=== PATIENT | male | born 1935 | race Caucasian/White ===

== ENCOUNTER 2017-06-04 16:09 | Observation (INO) | payer OTHER ==
[2017-06-04] MEDS ORDERED: HYDROCODONE/APAP 5/325 TAB PO ONE (16:48)
--- NOTE | 2017-06-04 16:56 | EDPHY ---
H & P Time Seen by Provider: 06/04/17 16:26 HPI/ROS: CHIEF COMPLAINT: "Put out my left leg" HISTORY OF PRESENT ILLNESS: This 81-year-old man has had intermittent sciatica in his left leg. He presents today with severe left hip and leg pain which started when he stood up on a big step today at 10:00 a.m.. He said this is just like his previous sciatica of left hip pain radiating to the lateral left leg to his knee which is severe with movement or weight-bearing. He can barely walk. Radiates down his leg. Mild at rest moderate to severe with standing. No fall or other direct trauma. No weakness or numbness in his foot no incontinence. REVIEW OF SYSTEMS: Eye: no change in vision ENT: no sore throat Cardiac: no chest pain or syncope Pulmonary: no cough or SOB Abdomen: no vomiting, diarrhea, abdominal pain Musculoskeletal: HPI Skin: no rash Neuro: no headache. The patient describes for the last couple of weeks intermittent tingling on the left side of his neck which wraps around to his right ear which he is concerned might be a stroke Constitutional: no fever : no urinary symptoms A comprehensive 10 point review of systems is otherwise negative aside from elements mentioned in the history of present illness. PAST MEDICAL HISTORY: Pacemaker and sciatica Social history: Lives at [facility] here with a friend and his son General Appearance: Alert and conversant, cooperative. Eyes: No scleral icterus. Extraocular motion intact. ENT, Mouth: Normal mucous membranes. Normal ears bilaterally without any vesicles or rash. Respiratory: Normal respiratory effort, breath sounds equal, lungs are clear to auscultation. Cardiovascular: Regular rate and rhythm. Gastrointestinal: Abdomen is soft and non tender. Neurological: Alert and oriented x3. Normally conversant. Face symmetric, normal movement and sensation in all extremities. DTRs 1+ left patella 2+ right patella and 1+ bilateral ankles. Toes downgoing and no clonus. The the patient can stand but needs to hold on me because of pain in his left hip and leg Skin: Warm and dry, no rashes. Musculoskeletal: Normal range of motion of the neck. Psychiatric: Not agitated. Emergency Department course/MDM: Patient is clearly not able to ambulate independently right now. I do not think the tingling in his neck or his ear represents an acute medical or surgical emergency. He took 2 Aleve at 11:00 a.m.. Plan for 1 [place], x-ray of the left hip, labs and probable admission for further evaluation and treatment. MRI not possible because of pacemaker. Admission because he can't walk. Hip Xray negative for fracture per Dr. Babin at 9:20 p.m., possible trochanteric bursitis. Smoking Status: Never smoked Constitutional: Initial Vital Signs Temperature (C) 36.9 C 06/04/17 16:11 Heart Rate 75 06/04/17 16:11 Respiratory Rate 18 06/04/17 16:11 Blood Pressure 168/87 H 06/04/17 16:11 O2 Sat (%) 94 06/04/17 16:11 O2 Delivery Mode Room Air Allergies/Adverse Reactions: Penicillins Allergy (Mild, Verified 06/04/17 16:10) NAUSEA POLLENS Allergy (Mild, Uncoded 05/25/13 14:30) STUFFY NOSE Home Medications: Medication Instructions Recorded Aspirin [Aspirin 325 mg] 0.5 tab PO DAILY 05/08/11 Bimatoprost 0.03% [Lumigan 0.03%] 1 drops EACHEYE HS 05/08/11 Levothyroxine [Synthroid 150 mcg 150 mcg PO DAILY@05/08/11 (*)] Rosuvastatin Calcium [Crestor] 5 mg PO HS 05/08/11 Testosterone [Androgel 1%] 5 gm TD DAILY 05/08/11 Brinzolamide/Brimonidine Tart 1 drop EACHEYE TID 06/30/13 [Simbrinza 1%-0.2% Eye Drops] Furosemide [Lasix 20 MG (RX)] 20 mg PO DAILY 06/30/13 Glimepiride [Amaryl] 4 mg PO BID@,18 06/30/13 Insulin Aspart [Novolog] 1 - 3 unit SQ DAILY@06/30/13 Insulin Glargine [Lantus 100 13 units SC DAILY 06/30/13 UNITS/ML (RX)] Pioglitazone HCl [Actos] 45 mg PO DAILY 06/30/13 Quinapril HCl [Accupril 40 MG] 40 mg PO DAILY 06/30/13 Medical Decision Making - Diagnostics Imaging Results: Imaging Impressions Hip X-Ray 06/04/17 16:48 Impression: No evidence for acute osseous abnormality left hip. Differential Diagnosis: Differential considered including but not limited to hip fracture, sciatica, bursitis, compartment syndrome, spinal stenosis. Consult/Admit Bed Type: [facility] - Data Points Laboratory Results: Laboratory Results 06/04/17 18:22 06/04/17 18:22 06/04/17 06/04/17 18:22 18:22 WBC 9.25 10^3/uL 10^3/uL (3.80-9.50) RBC 4.54 10^6/uL 10^6/uL (4.40-6.38) Hgb 15.0 g/dL g/dL (13.7-17.5) Hct 41.9 % % (40.0-51.0) MCV 92.3 fL fL (81.5-99.8) MCH 33.0 pg pg (27.9-34.1) MCHC 35.8 g/dL g/dL (32.4-36.7) RDW 14.6 % % (11.5-15.2) Plt Count 151 10^3/uL 10^3/uL (150-400) MPV 9.4 fL fL (8.7-11.7) Neut % (Auto) 58.3 % % (39.3-74.2) Lymph % (Auto) 27.5 % % (15.0-45.0) Caroline % (Auto) 9.3 % % (4.5-13.0) Eos % (Auto) 3.9 % % (0.6-7.6) Baso % (Auto) 0.8 % % (0.3-1.7) Nucleat RBC Rel Count 0.0 % % (0.0-0.2) Absolute Neuts (auto) 5.40 10^3/uL 10^3/uL (1.70-6.50) Absolute Lymphs (auto) 2.54 10^3/uL 10^3/uL (1.00-3.00) Absolute Monos (auto) 0.86 10^3/uL H 10^3/uL (0.30-0.80) Absolute Eos (auto) 0.36 10^3/uL 10^3/uL (0.03-0.40) Absolute Basos (auto) 0.07 10^3/uL 10^3/uL (0.02-0.10) Absolute Nucleated RBC 0.00 10^3/uL 10^3/uL (0-0.01) Immature Gran % 0.2 % % (0.0-1.1) Immature Gran # 0.02 10^3/uL 10^3/uL (0.00-0.10) Sodium 137 mEq/L mEq/L (134-144) Potassium 4.4 mEq/L mEq/L (3.5-5.2) Chloride 107 mEq/L mEq/L (97-110) Carbon Dioxide 21 mEq/l L mEq/l (22-31) Anion Gap 9 mEq/L mEq/L (8-16) BUN 51 mg/dL H mg/dL (7-23) Creatinine 2.1 mg/dL H mg/dL (0.7-1.3) Estimated GFR 31 Glucose 197 mg/dL H mg/dL (70-100) Calcium 10.0 mg/dL mg/dL (8.5-10.4) Medications Given: Acetaminophen (Tylenol) 650 mg PO Q4HRS PRN PRN Reason: Pain, Mild/Fever, Can Take PO Stop: 12/01/17 19:06 Last Admin: 06/04/17 22:06 Dose: 650 mg Discontinued Medications Hydrocodone Bitart/Acetaminophen ([place] 5/325) 1 tab PO EDNOW ONE Stop: 06/04/17 16:49 Last Admin: 06/04/17 17:04 Dose: 1 tab Departure - Departure Disposition: [facility] Inpatient Acute Clinical Impression: Left hip pain Condition: Good
[2017-06-04 18:38] LABS: % IMMATURE GRANULYOCYTES 0.2 % (0.0-1.1); ABSOLUTE IMMATURE GRANULOCYTES 0.02 10^3/uL (0.00-0.10); ADD DIFF? NO; ADD MORPH? NO; ADD SCAN? NO; ATYPICAL LYMPHOCYTE FLAG 10 (0-99); FRAGMENT RBC FLAG 40 (0-99); HEMATOCRIT 41.9 % (40.0-51.0); LEFT SHIFT FLG 0 (0-99); LIPEMIA HEMOLYSIS FLAG 90 (0-99); MEAN CELL HEMOGLOBIN CONCENTR. 35.8 g/dL (32.4-36.7); MEAN CELL VOLUME 92.3 fL (81.5-99.8); MEAN PLATELET VOLUME 9.4 fL (8.7-11.7); PLATELET CLUMPS FLAG 0 (0-99); PLATELET COUNT 151 10^3/uL (150-400); RED BLOOD CELL COUNT 4.54 10^6/uL (4.40-6.38); RED CELL DISTRIBUTION WIDTH 14.6 % (11.5-15.2)
[2017-06-04 19:00] LABS: ANION GAP 9 mEq/L (8-16); CARBON DIOXIDE 21 mEq/l (22-31); CHLORIDE 107 mEq/L (97-110); CREATININE 2.1 mg/dL (0.7-1.3); GLOMERULAR FILTRATION RATE 31; GLUCOSE 197 mg/dL (70-100); POTASSIUM 4.4 mEq/L (3.5-5.2); SODIUM 137 mEq/L (134-144)
[2017-06-04] MEDS ORDERED: ONDANSETRON 4 MG/2 ML VIAL IVP PRN (19:07)
[2017-06-04] MEDS ORDERED: ACETAMINOPHEN 325 MG TAB PO PRN (19:07)
[2017-06-04] MEDS ORDERED: ONDANSETRON DISINTEGRATING 4 MG TAB PO PRN (19:07)
[2017-06-04] MEDS ORDERED: oxyCODONE IR 5 MG TAB PO PRN (19:07)
[2017-06-04] MEDS ORDERED: TEMAZEPAM 15 MG CAP PO PRN (19:07)
[2017-06-04] MEDS ORDERED: D50W 25 GM/50 ML SYR IVP PRN (19:15)
--- NOTE | 2017-06-04 20:08 | GHP ---
[f rep st] HISTORY AND PHYSICAL DATE OF ADMISSION: 06/04/2017 CHIEF COMPLAINT: Sciatica pain. HISTORY OF PRESENT ILLNESS: This is a 81-year-old man who presents with an acute episode of sciatica pain. He was taking a large step up onto a bus with his left leg and had immediate severe pain down his left SI joint, down his left buttock, radiated to the front of his leg but did not pass his knee . He had no weakness. He was thus brought to the emergency department for further evaluation. He h as no loss of bowel or bladder. He is able to urinate. He has no new numbness down the leg, though he does have chronic diabetic neuropathy. He notes that his pain is a little bit better with Vicodin . He has not had any fevers recently. He had an episode like this about 2-1/2 weeks ago while he wa s working with PT. He was able to work out the pain with some manual adjustments during that session . It took about 45 minutes. He had seen Dr. Schmidt before and has had an injection. PAST MEDICAL/SURGICAL HISTORY: 1. Pacemaker. 2. Sciatica. 3. BPH. 4. Chronic kidney disease. 5. 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 6. Hypertension. 7. Hyperlipidemia. 8. Hypothyroid. 9. Anemia. 10. GUILLERMO. 11. Glaucoma. MEDICATIONS: Please see medication reconciliation. ALLERGIES: Penicillin and pollens. SOCIAL HISTORY: He lives at the [facility]. FAMILY HISTORY: Reviewed and noncontributory. REVIEW OF SYSTEMS: A 10-point review of systems was conducted and is negative except per history of present illness. PHYSICAL EXAMINATION: VITAL SIGNS: Blood pressure 178/87, heart rate 75, respiration rate 18, satur ating 94% on room air, temperature 36.9. GENERAL: The patient is a pleasant man who appears uncomfo rtable lying in bed. HEENT: Shows him to be normocephalic, atraumatic. CARDIOVASCULAR: Regular ra te and rhythm. No murmurs, rubs, or gallops. PULMONARY: Lungs clear to auscultation bilaterally. ABDOMEN: Soft, nontender, nondistended. SKIN: Shows no rash : Exam shows no Heaton. NEUROLOGIC: Exam shows him to be alert and oriented x3. He is tender to palpation over the left SI joint and l eft buttock. His sensation is unchanged in his left leg though he does have diminished sensation to light touch in his distal leg. Motor is intact. Reflexes are diminished, but symmetric bilaterally. PSYCHIATRIC: Exam shows normal mood and affect. LABORATORY: CBC is normal. Creatinine is 2.1, bicarb is 21, glucose 179. DATA: 1. I discussed Dr. Sams. Will admit to med surg for pain control. 2. Hip x-ray shows no acute fracture. IMPRESSION AND PLAN: A 81-year-old man with acute episode of sciatic pain. 1. Sciatica: He is unable to get an MRI due to his pacemaker. CT scan has been ordered by Dr. Sams , will follow up on that. We will provide him pain medications overnight. I discussed treating this with steroids and he is a little bit hesitant. Could consider SI joint injection or other injection tomorrow based on his CAT scan. He would be amenable to this. We will go ahead and make him n.p.o. after midnight pending that. 2. Chronic kidney disease: He is at his baseline. Avoid nephrotoxins. 3. Diabetes mellitus type 2: We will continue his home insulins. We will do glucose checks and giv e him sliding scale insulin. 4. Hypertension: Will continue his antihypertensives. /[id number]/MODL
[2017-06-04] MEDS ORDERED: INSULIN GLARGINE 100 UNITS/ML SYRINGE SC SCH (22:45)
[2017-06-05 04:45] LABS: % IMMATURE GRANULYOCYTES 0.3 % (0.0-1.1); ABSOLUTE IMMATURE GRANULOCYTES 0.04 10^3/uL (0.00-0.10); ADD DIFF? NO; ADD MORPH? NO; ADD SCAN? NO; ATYPICAL LYMPHOCYTE FLAG 0 (0-99); FRAGMENT RBC FLAG 0 (0-99); HEMATOCRIT 39.1 % (40.0-51.0); HEMOGLOBIN 14.1 g/dL (13.7-17.5); LEFT SHIFT FLG 0 (0-99); LIPEMIA HEMOLYSIS FLAG 90 (0-99); MEAN CELL HEMOGLOBIN 33.1 pg (27.9-34.1); MEAN CELL HEMOGLOBIN CONCENTR. 36.1 g/dL (32.4-36.7); MEAN CELL VOLUME 91.8 fL (81.5-99.8); MEAN PLATELET VOLUME 8.9 fL (8.7-11.7); PLATELET CLUMPS FLAG 10 (0-99); PLATELET COUNT 129 10^3/uL (150-400); RED BLOOD CELL COUNT 4.26 10^6/uL (4.40-6.38); RED CELL DISTRIBUTION WIDTH 14.4 % (11.5-15.2)
[2017-06-05 05:07] LABS: ANION GAP 9 mEq/L (8-16); CARBON DIOXIDE 20 mEq/l (22-31); CHLORIDE 110 mEq/L (97-110); CREATININE 2.1 mg/dL (0.7-1.3); GLOMERULAR FILTRATION RATE 31; GLUCOSE 110 mg/dL (70-100); POTASSIUM 4.6 mEq/L (3.5-5.2); SODIUM 139 mEq/L (134-144)
[2017-06-05 08:27] VITALS: RESP 18; TEMP 98.4
[2017-06-05] MEDS: INSULIN LISPRO 100 UNIT/ML SC SCH ×2 (11:08→12:10)
--- NOTE | 2017-06-05 11:10 | HOSPPROG ---
Hospitalist Progress Note Assessment/Plan: Patient is a 81-year-old male who presented with an acute episode of sciatica pain. He was taken a large step onto the bus and with his left leg and had severe pain down his left buttock which radiated to the front of the leg but did not past his knee. He has an ambulance unable to get an MRI because he has a pacemaker in place. Today is my 1st encounter with the patient. Chart reviewed. * sciatica CT scan shows nothing acute Working with physical therapy and occupational therapy pain is in the hip area as well/ has some bursitis in left trochanter * chronic kidney disease At his baseline * diabetes type 2 Will resume his home meds *HTN bp elevated/likely due to pain *Plan; spoke with IR and they can do injection tomorrow/ patient feels overall better and was able to ambulate/ spoke with Dr Hurt and she will f/u with him. Subjective: Don said his pain is ongoing but better. Objective: Vital Signs Temp Pulse Resp BP Pulse Ox 36.9 C 64 18 169/76 H 93 06/05/17 08:26 06/05/17 08:26 06/05/17 08:26 06/05/17 08:26 06/05/17 08:26 Laboratory Results 06/05/17 04:34 06/05/17 04:34 06/04/17 06/05/17 06/06/17 05:59 05:59 05:59 Output Total 75 Balance -75 - Physical Exam Constitutional: no apparent distress, appears nourished, No not in pain Eyes: PERRL Ears, Nose, Mouth, Throat: hearing normal Respiratory: no respiratory distress Skin: warm Musculoskeletal: muscular tenderness (at left hip area/ around the trochanter and into the left gluteus area) Neurologic: AAOx3 Psychiatric: interacting appropriately ICD10 Worksheet Patient Problems: Problems Problem Status Onset Left hip pain Acute Acute lower urinary tract infection Active Ronal hematuria Active Retention of urine Active Urinary tract obstruction Active
[2017-06-05 11:11] VITALS: BP 131/63; PULSE 61; O2SAT 96
[2017-06-05] MEDS: GABAPENTIN 100 MG CAP PO SCH ×2 (15:09→17:39)
[2017-06-05] MEDS ORDERED: Brinzolamide/Brimonidine Tart [Simbrinza 1%-0.2% Eye Drops] 1 DROP EACHEYE SCH (16:00)
--- NOTE | 2017-06-05 16:45 | GDS ---
[f rep st] DISCHARGE SUMMARY DISCHARGE DIAGNOSES: 1. Sciatica pain as well as left hip pain. 2. Chronic kidney disease. 3. Diabetes type 2. 4. Hypertension. HISTORY OF PRESENT ILLNESS: Briefly, the patient is a 81-year-old male who presented with acute epis ode of sciatica pain. He was taking a large step onto a bus with his left leg, and had severe pain d own his left buttock which radiated to the front of leg. He was unable to get an MRI because he has a pacemaker in place. He had an extremity CT scan performed, which showed no acute fracture or dislo cation. It showed moderate left hip osteoarthrosis. He has subtle fat stranding lateral to the left greater trochanter, which may represent trochanteric bursitis. He also has fatty atrophy of the lef t gluteus minimus. Today, I spoke with his primary care doctor, Dr. Thania Hurt. She will follow up with a CT scan and likely refer him out to an orthopedic surgeon for further evaluation and possi ble steroid injection. HOSPITAL COURSE PER PROBLEM: 1. Sciatica pain as well as left hip pain. Doing a trial of gabapentin to see if this helps. He wi ll also follow up with Dr. Thania Hurt in the outpatient setting. 2. Chronic kidney disease. At his baseline. 3. Diabetes type 2. Home medications resumed. 4. Hypertension. Blood pressure is elevated but his home medications were not all completely resume d until this afternoon. PENDING LABS AND TESTS: None. CONDITION AT DISCHARGE: Stable. Blood pressure is 131/63, heart rate 61, respiratory rate is 18, O2 sats on room air 96%, temperature 36.9 Celsius. MEDICATIONS AT DISCHARGE: Please see the EMR. DISCHARGE INSTRUCTIONS: 1. To follow up with Dr. Hurt in the outpatient setting. 2. If he develops fever, chills, chest pain, or shortness of breath, return to the ER. /[id number]/MODL
[2017-06-05] MEDS ORDERED: NON-FORMULARY NEW DRUG (Glimepiride [Amaryl] 4 MG) PO SCH (18:00)
[2017-06-05] MEDS ORDERED: INSULIN ASPART 24 UNIT SQ SCH (18:00)
[2017-06-05] MEDS ORDERED: GLIMEPIRIDE 2 MG TAB PO SCH (18:00)
[2017-06-05] MEDS ORDERED: INSULIN LISPRO 100 UNIT/ML SC SCH (18:00)
[2017-06-05] MEDS ORDERED: ROSUVASTATIN CALCIUM 10 MG TAB PO SCH (21:00)
[2017-06-05] MEDS ORDERED: NON-FORMULARY NEW DRUG (Rosuvastatin Calcium [Crestor 5mg] 5 MG) PO SCH (21:00)
[2017-06-05] MEDS ORDERED: BIMATOPROST 0.03% EACHEYE SCH (21:00)
[2017-06-06] MEDS ORDERED: LEVOTHYROXINE 125 MCG TAB PO SCH (06:00)
[2017-06-06] MEDS ORDERED: INSULIN GLARGINE 100 UNITS/ML SYRINGE SC SCH (09:00)
[2017-06-06] MEDS ORDERED: FUROSEMIDE 20 MG TAB PO SCH (09:00)
[2017-06-06] MEDS ORDERED: TESTOSTERONE 1% 5 GM GEL PKT TD SCH (09:00)
== END 2017-06-05 16:23 | disposition home or self-care (01) ==
LOC: INTOOBSV 18:34 → F3N 19:43
PROVIDERS: ADMIT Student in an Organized Health Care Education/Training Program; ATTEND Internal Medicine Pulmonary Disease
DX: M25.552 Pain in left hip (principal); M54.42 Lumbago with sciatica, left side; N18.9 Chronic kidney disease, unspecified; E11.22 Type 2 diabetes mellitus with diabetic chronic kidney disease; E11.21 Type 2 diabetes mellitus with diabetic nephropathy; E11.39 Type 2 diabetes mellitus with other diabetic ophthalmic complication; E11.3299 Type 2 diabetes mellitus with mild nonproliferative diabetic retinopathy without macular edema, unspecified eye; I12.9 Hypertensive chronic kidney disease with stage 1 through stage 4 chronic kidney disease, or unspecified chronic kidney disease; M54.2 Cervicalgia; E78.5 Hyperlipidemia, unspecified; E03.9 Hypothyroidism, unspecified; Z88.1 Allergy status to other antibiotic agents; Z95.0 Presence of cardiac pacemaker; Z79.4 Long term (current) use of insulin
CPT/HCPCS: 73502; 73700; 97161; 97165; G0378; G8978; G8979; G8980; G8987; G8988; G8989; J1815

== ENCOUNTER 2018-01-04 18:45 | Emergency (ER) | payer OTHER ==
--- NOTE | 2018-01-04 19:00 | EDPHY ---
H & P Stated Complaint: bloos at urinary meatus Time Seen by Provider: 01/04/18 19:25 HPI/ROS: CHIEF COMPLAINT: Hematuria with clots HISTORY OF PRESENT ILLNESS: The patient is an 82 y/o male arriving with his friend complaining of hematuria with clots worsening over the last 3 days. His medial history includes BPH post GreenLight photovaporization and meatal stenosis dilation and prior admission for urinary retention due to bladder outlet obstruction in 2012. He required catheter placement by urology with continuous bladder irrigation and vigorous flushing for a few days and he was still passing clots after the Heaton was removed. Since that episode, patient has been doing fairly well with urinary issues. He had a routine annual visit with his urologist last with a normal exam. Later that night he started urinating bright red blood with small clots. He increased fluid intake in an attempt to flush his bladder with no improvement throughout the weekend. This afternoon, "one of the clots blocked my bladder" causing severe pain and complete urinary obstruction. This cleared as he was preparing to come into the ED and he "peed out a full liter" of bloody urine into his home urinal. He is currently comfortable and urinating without pain, but continues to have hematuria. He denies abdominal pain, fever, vomiting, flank pain, or other complaints. No recent illness or trauma. He is complaint with all of his medications and takes a daily aspirin. REVIEW OF SYSTEMS: A ten point review of systems was performed and is negative with the exception of the items mentioned in the HPI. Past medical history: 1. Atrial fibrillation 2. Diabetes type II with nephropathy and retinopathy 3. Hypertension 4. Hyperlipidemia 5. Chronic kidney disease, creatinine on 12/26/17 was 2.6. 6. BPH 7. Hypothyroidism 8. Hearing loss 9. Sciatica 10. Anemia 11. Glaucoma 12. Meatal stenosis Past surgical history: 1. Pacemaker for sick sinus syndrome 2. GreenLight photovap of prostate and meatal stenosis dilation 3. Cataract surgery 4. Vasectomy Family history: Noncontributory Social history: Lives at the [facility]. Friend at bedside. 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 PCP: Dr. Hurt, urologist: Dr. Mcclellan, political science professor: Dr. Montalvo. Prior medical records reviewed including admission 06/04/17 for sciatica pain and admission 06/29/13 for inability to urinate. General Appearance: Alert. Vital signs reviewed. Blood pressure 150/63 at triage. Eyes: Pupils equal and round, no conjunctival injection, no discharge. Anicteric. ENT, Mouth: Mucous membranes are moist, no oropharyngeal erythema or edema. Neck: No lymphadenopathy, supple. Respiratory: Lungs are clear to auscultation; no wheezes, rales, or rhonchi. Cardiovascular: Regular rate and rhythm; no murmur, rub, or gallop. Gastrointestinal: Abdomen is soft and nontender, no masses or organomegaly, bowel sounds normal. : Uncircumcised, blood at meatus, blood stains in diaper. Skin: Warm and dry, no rashes on exposed skin, normal color. Back: Nontender to palpation over the thoracolumbar spine. No CVAT. Extremities: No lower extremity edema, no calf tenderness or swelling. Neurological: Alert and oriented. Moving all four extremities easily and equally. Psychiatric: Normal affect. - Personal History Current Tetanus/Diphtheria Vaccine: Yes Tetanus Vaccine Date: 5 years ago - Medical/Surgical History Hx Asthma: No Hx Chronic Respiratory Disease: No Hx Diabetes: Yes Hx Cardiac Disease: No Hx Renal Disease: No Hx Cirrhosis: No Hx Alcoholism: No Hx HIV/AIDS: No Hx Splenectomy or Spleen Trauma: No Other PMH: sciatica, pacemaker, AFIB, DM II, HTN, Hyperlipidemia, CKD, BPH, hypothyroid - Social History Smoking Status: Never smoked Constitutional: Initial Vital Signs Temperature (C) 36.7 C 01/04/18 18:49 Heart Rate 75 01/04/18 18:49 Respiratory Rate 18 01/04/18 18:49 Blood Pressure 150/63 H 01/04/18 18:49 O2 Sat (%) 95 01/04/18 18:49 O2 Delivery Mode Room Air Allergies/Adverse Reactions: Penicillins Allergy (Mild, Verified 01/04/18 18:46) NAUSEA POLLENS Allergy (Mild, Uncoded 05/25/13 14:30) STUFFY NOSE Home Medications: Medication Instructions Recorded Aspirin [Aspirin 325 mg (*)] 0.5 tab PO DAILY 05/08/11 Bimatoprost 0.03% [LUMIGAN 0.03%] 1 drops EACHEYE HS 05/08/11 Rosuvastatin Calcium [Crestor 5mg] 5 mg PO HS 05/08/11 Testosterone [ANDROGEL 1% 5gm pkt 5 gm TD DAILY 05/08/11 (*)] Brinzolamide/Brimonidine Tart 1 drop EACHEYE TID 06/30/13 [Simbrinza 1%-0.2% Eye Drops] Furosemide [Lasix 20 MG (*)] 20 mg PO DAILY 06/30/13 Glimepiride [Amaryl] 4 mg PO BID@07,18 06/30/13 Insulin Aspart [Novolog] 24 unit SQ DAILY@18 06/30/13 Insulin Glargine [Lantus 100 13 units SC DAILY 06/30/13 UNITS/ML (*)] Quinapril HCl [Accupril 40 MG] 40 mg PO DAILY 06/30/13 Gabapentin [Neurontin 100 MG (*)] 100 mg PO BID PRN #30 cap 06/05/17 Levothyroxine [Synthroid 125 mcg 125 mcg PO DAILY06 06/05/17 (*)] Medical Decision Making ED Course/Re-evaluation: Bladder scan revealed 481cc of urine. He was able to void similar amount of maroon-colored urine without issue. 2009: Consulted with Dr. Charles, urology. Reassessed patient and discussed treatment options. Recommended catheter and irrigation, which he refused. In 2012 when he required catheterization it was a difficult process, presumably due to his meatal stenosis. He tells me that ultimately Dr. Mcclellan had to use a pediatric catheter. He would like to follow up with his urologist tomorrow for reassessment. Strict return precautions discussed. He understands that he might need to return during the night if he develops urinary retention. He is familiar with the signs and symptoms of urinary retention. Differential Diagnosis: I considered a differential diagnosis that includes but is not limited to urinary retention, infection, malignancy, use of anticoagulants, and trauma. Departure - Departure Disposition: Home, Routine, Self-Care Clinical Impression: Hematuria Qualifiers: Hematuria type: gross Qualified Code(s): R31.0 - Gross hematuria Condition: Good Instructions: Hematuria (ED) Additional Instructions: Call Dr. Mcclellan's office first thing tomorrow morning to schedule an appointment for follow up. Return to the ED for difficulty urinating or any other worsening of condition. Referrals: Thania Hrut MD [Primary Care Provider] - As per Instructions Alton Mcclellan MD [Medical Doctor] - As per Instructions Report Scribed for: Risa Pastor Report Scribed by: Ynes Murray Date of Report: 01/04/18 Time of Report: 19:14 Physician Review and Approval Statement: 01/09/18 15:46 Portions of this note were transcribed by the medical support specialist. I, Dr. Risa Pastor, personally performed the history, physical exam, and medical decision- making; and confirmed the accuracy of the information in the transcribed note.
[2018-01-04 20:35] VITALS: BP 158/77
== END 2018-01-04 20:33 | disposition home or self-care (01) ==
DX: R31.0 Gross hematuria (principal); E11.9 Type 2 diabetes mellitus without complications; I12.9 Hypertensive chronic kidney disease with stage 1 through stage 4 chronic kidney disease, or unspecified chronic kidney disease; N18.9 Chronic kidney disease, unspecified; Z79.4 Long term (current) use of insulin; Z79.82 Long term (current) use of aspirin

== ENCOUNTER 2018-01-06 08:22 | Day surgery (SDC) | payer OTHER | END 2018-01-06 09:00 | disposition home or self-care (01) | LOC: FSGY 08:22 | PROVIDERS: ATTEND Specialist | DX: N39.41 Urge incontinence (principal); Z53.20 Procedure and treatment not carried out because of patient's decision for unspecified reasons ==

== ENCOUNTER → 2018-01-07 | Outpatient (CLI) | payer OTHER | LOC: FIMAGING 13:36 | PROVIDERS: ATTEND Internal Medicine | DX: I82.411 Acute embolism and thrombosis of right femoral vein (principal); N18.4 Chronic kidney disease, stage 4 (severe) ==

== ENCOUNTER → 2018-09-11 | Outpatient (CLI) | payer OTHER | LOC: BHFA 14:45 | PROVIDERS: ATTEND Internal Medicine Cardiovascular Disease | DX: H34.212 Partial retinal artery occlusion, left eye (principal) ==

== ENCOUNTER 2019-01-09 10:20 | Emergency (ER) | payer OTHER ==
--- NOTE | 2019-01-09 10:56 | EDPHY ---
H & P Time Seen by Provider: 01/09/19 10:34 HPI/ROS: CHIEF COMPLAINT: Decreased vision in the left eye HISTORY OF PRESENT ILLNESS: 9:00 a.m. Patient started seeing dots in his left eye marching across is pupil. At 9:40 a.m. He decreased his vision by about 50 % and feels like it is just really blurry and he is unable to see normally. REVIEW OF SYSTEMS: No headache or eye pain. A little bit of hay fever today. No weakness or numbness in extremities, no trouble with speech balance strength or sensation. PAST MEDICAL HISTORY: Includes sciatica, pacemaker and atrial fibrillation, diabetes, hypertension, hyperlipidemia, hypothyroid. Social history: Brought to the ED by a friend General Appearance: Alert, no distress. Visual acuity: noted from nursing notes. However I believe the right and left should be switched as he tells me his left eye is the 1 with difficulty. He can count fingers with the left eye but can't read the chart. Lids and Lashes: No edema, no stye, no erythema. Conjunctivae: Slightly bilaterally injected, no exudate. Sclera: No subconjunctival hemorrhage, no icterus. Pupils: Equal and round, normally reactive. Corneas: No foreign body on surface of cornea. No chemosis. Anterior chamber: normal, no hyphema or hypopyon. External: No proptosis, no periorbital swelling or redness or tenderness. EOMI. Chest clear to auscultation bilaterally. No facial swelling. Distant heart sounds, no murmur auscultated. Abdomen nontender. No skin rash. Vital signs reviewed. Alert, ambulatory, speech fluent, normal [id number], face symmetric. Emergency Department course/MDM: Appears to be a primary decrease in vision in the left eye. He has had previous cataract surgery. Plan for ophthalmology consultation. I think that stroke or TIA is less likely than primary ophthalmological problem. 1100: Discussed with Dr. Lou. He will see the patient directly in his office for availability of specialized equipment not available in the ED. Smoking Status: Never smoked Constitutional: Initial Vital Signs Temperature (C) 36.7 C 01/09/19 10:24 Heart Rate 75 01/09/19 10:24 Respiratory Rate 17 01/09/19 10:24 Blood Pressure 182/75 H 01/09/19 10:24 O2 Sat (%) 95 01/09/19 10:24 O2 Delivery Mode Room Air Allergies/Adverse Reactions: Penicillins Allergy (Mild, Verified 01/04/18 18:46) NAUSEA POLLENS Allergy (Mild, Uncoded 05/25/13 14:30) STUFFY NOSE Home Medications: Medication Instructions Recorded Aspirin [Aspirin 325 mg (*)] 0.5 tab PO DAILY 05/08/11 Bimatoprost 0.03% [LUMIGAN 0.03%] 1 drops EACHEYE HS 05/08/11 Rosuvastatin Calcium [Crestor 5mg] 5 mg PO HS 05/08/11 Testosterone [ANDROGEL 1% 5gm pkt 5 gm TD DAILY 05/08/11 (*)] Brinzolamide/Brimonidine Tart 1 drop EACHEYE TID 06/30/13 [Simbrinza 1%-0.2% Eye Drops] Furosemide [Lasix 20 MG (*)] 20 mg PO DAILY 06/30/13 Glimepiride [Amaryl] 4 mg PO BID@06/30/13 Insulin Aspart [Novolog] 24 unit SQ DAILY@18 06/30/13 Insulin Glargine [Lantus 100 13 units SC DAILY 06/30/13 UNITS/ML] Quinapril HCl [Accupril 40 MG] 40 mg PO DAILY 06/30/13 Gabapentin [Neurontin 100 MG (*)] 100 mg PO BID PRN #30 cap 06/05/17 Levothyroxine [Synthroid 125 mcg 125 mcg PO DAILY06 06/05/17 (*)] MDM/Departure - Depart Disposition: Home, Routine, Self-Care Clinical Impression: Vision loss of left eye Condition: Good Instructions: Blurred Vision (ED) Additional Instructions: Go directly to Dr. Lou's office at the [place] location now, he is expecting you ([facility] location). Referrals: Thania Hurt MD [Primary Care Provider] - As per Instructions Mauri Lou MD [Medical Doctor] - As per Instructions ([address] [facility] [address] )
[2019-01-09 11:09] VITALS: BP 156/70
== END 2019-01-09 11:14 | disposition home or self-care (01) ==
DX: H53.8 Other visual disturbances (principal); I48.91 Unspecified atrial fibrillation; E11.9 Type 2 diabetes mellitus without complications; I10 Essential (primary) hypertension; E78.5 Hyperlipidemia, unspecified; Z79.4 Long term (current) use of insulin